=== PATIENT | male | born 1950 | race Caucasian/White ===

== ENCOUNTER 2023-10-14 13:43 | Emergency (ER) | payer MEDICARE, OTHER, SELFPAY ==
[2023-10-14 13:48] VITALS: BP 142/93
--- NOTE | 2023-10-14 14:24 | ED.GENMED ---
History of Present Illness
General
Chief Complaint: Musculo-Skeletal Complaint
Source: patient
Exam Limitations: none
Time Seen by Provider: 10/14/23 13:56
Nursing documentation reviewed up to this point in time: agreed with
Travel History
Have you had any contact with someone who has COVID-19?: No
Do you have any symptoms of coronavirus? Fever > 100 degrees, chills, cough, shortness of breath, sore throat, loss of taste or smell, muscle aches, or headache?: No
History of Present Illness
History of Present Illness:
pt is a 73 y/o M right hand dominance
has h/o arthritis
has seen ortho previously for hand pain and had cortisone shot by dr. garsia prevbrad
pt says that 5 days ago he woke up with left wrist pain and swelling
he has pain with movement, mario flexion/extension
he has tried motrin, aleve, lidocaine patch, rest, splinting and it is still painful
he his having a hard time sleeping
no redenss, warmth, fever, truama
no h/o gout
drinks alcohol socially
Past History
Past History
ED Past Medical History: Other (Chronic Tinnitus for 9 years (2014)); Negative Asthma, HTN, Hypercholesterolemia or NIDDM
ED Past Surgical History: None
Social History
Tobacco: Smoker
Alcohol: Daily (Stevens a Pint)
Drug: None
Personal:
Living: with family
Employment: Employed
Review of Systems
Review of Systems
Allergies reviewed?: Yes
All Other Systems: Not applicable
Phy Exam
Physical Exam
Physical Exam:
GENERAL: Alert , in no apparent distress, comfortable at rest
HEAD: NCAT
CV: 2+ radial pulse
NEUROLOGICAL: Alert and oriented, no focal neuro deficits, , 5/5 strength, sensation intact
SKIN: Warm and dry,
no redness/warmth
MUSCULOSKELETAL: pt has left wrist swelling c/w arthritis
not hot but mildly warm
no redness
painful but able to flex and extend the wrist;
hand nontender
cap refill intact
normal sensaiton
PSYCH: Normal and appropriate interaction.
Course
Orders/Labs/Results
Orders:
Orders
10/14/23 13:54
Wrist, Left 3 Views CR [CR Wrist - Left Min 3 Views] Urgent
Comment:
Reason For Exam: pain
10/14/23 14:40
Prednisone [Deltasone] 50 mg PO NOW STA
Vital Signs
Initial and Last Documented VS:
Initial Vital Signs
Temp Pulse Resp BP Pulse Ox
97.8 F 115 20 142/93 96
10/14/23 13:48 10/14/23 13:48 10/14/23 13:48 10/14/23 13:48 10/14/23 13:48
Last Documented Vital Signs
Temp Pulse Resp BP Pulse Ox
97.8 F 87 12 147/88 99
10/14/23 13:48 10/14/23 15:05 10/14/23 15:05 10/14/23 15:05 10/14/23 15:05
MDM/Problems Addressed
Differential Diagnosis Includes:
arthritis, gout
MDM/Problems Addressed:
73 y/o M
h/o weekly alcohol
has OA
had atraumatic left wrists pain/swelling x 5 days
trouble sleeping
tried nsaids without relief
ice, lidocaine patch
immobilization without relief
xrays shows some OA indepdentnly reviewed by me
reviewed previous labs, cr normal
no h/o PUD, GI bleeding, or ckd, diabetes
will do low dose steroids
1 dose pain med for night time x 5 pills
pt has tolerated oxy in the pat
given hydrocodone.
has f/u with orhto already
*Critical Care Note
Total Time (30-74mins, 75-104mins- exclusive of procedures): Not Applicable
ED Attending Note
-
Portions of this chart may have been created with voice recognition software.� Occasional wrong word or��sound alike� substitutions may have occurred due to the inherent limitations of voice recognition software.
Discharge Plan
Departure
Patient Disposition: Home (Routine Discharge)
Date of Disposition: 10/14/23
Time of Disposition: 15:09
Patient with high blood pressure during this ER visit?: No
Condition: Fair
Discharge Problem:
Arthritis
Instructions: Osteoarthritis (DC)
Prescriptions:
New
hydrocodone-acetaminophen 5-325 mg tablet
1 tab PO HS PRN (Reason: Pain) Qty: 5 0RF
prednisone 20 mg tablet
20 mg PO DAILY Qty: 4 0RF
No Action
vitamins-lipotropics 1 TAB tablet
1 tab PO DAILY
escitalopram oxalate 10 MG tablet
10 mg PO HS
milk thistle 300 MG capsule
300 mg PO DAILY
glucosam-chond gc-euxaat-lj ac 1 EACH capsule
1 ea PO DAILY
GINKGO BILOBA
1 tab PO DAILY
lorazepam 1 MG tablet
1 mg PO Q4HPRN PRN (Reason: Ringing in the ears, Anxiety) Qty: 10 0RF
Referrals:
Jameel Garsia MD [Active] - Follow up in 5-7 days
Activity Restrictions/Additional Instructions:
YOUR WRIST PAIN IS LIKELY FROM ARTHRITIS
TRY PREDNSIONE 20 MG ONCE A DAY FOR 4 DAYS STARTING TOMORROW
TYLENOL 3 TIMES A DAY
IF PAIN IS SEVERE YOU CAN TRY VICODIN 1 TAB AT NIGHT TO HELP YOU SLEEP. DO NOT MIX WITH ALCOHOL. DO NOT TAKE WITH TYLENOL (TAKE IN PLACE OF TYLENOL)
SEE DR. GARSIA NEXT WEEK
WEAR A SPLIN TO HELP IMMOBILIZE IT.
RETURN FOR: REDNESS, WARMTH SEVRE PAIN, SEVERE SWELLING, FEVER OR ANY CONCERNS.
Interventions
Interventions:
*Risk Screen - Suicide Last Done: 10/14/23 13:51
*General Assessment Last Done: 10/14/23 13:51
*Neglect/Abuse Screening Last Done: 10/14/23 13:51
ED- Fall Risk Assessment Last Done: 10/14/23 14:06
*ED COVID-19 Vaccine History Last Done: 10/14/23 13:51
*Nursing Disposition Last Done: 10/14/23 15:10
ED-Musculoskeletal Assessment Last Done: 10/14/23 14:06
Discharge Date and Time
Discharge Date/Time: 10/14/23 15:15
[2023-10-14] MEDS: DELTASONE 50 MG PO (14:49)
[2023-10-14 15:05] VITALS: BP 147/88
== END 2023-10-14 15:15 | disposition home or self-care (01) ==
LOC: EMR 13:43
PROVIDERS: EMERGENCY PHYSICIAN Emergency Medicine; FAMILY PHYSICIAN Physician Assistant Medical
DX: M19.032 Primary osteoarthritis, left wrist (principal); H93.19 Tinnitus, unspecified ear; F17.200 Nicotine dependence, unspecified, uncomplicated; I10 Essential (primary) hypertension; E55.9 Vitamin D deficiency, unspecified; E53.9 Vitamin B deficiency, unspecified
CPT/HCPCS: 99283; 73110

== ENCOUNTER → 2023-11-22 12:47 | Outpatient (REF) | payer MEDICARE, OTHER, SELFPAY | LOC: PAVMRI 12:47 | PROVIDERS: ATTENDING PHYSICIAN Pain Medicine Interventional Pain Medicine; FAMILY PHYSICIAN Family Medicine | DX: M54.12 Radiculopathy, cervical region (principal) | CPT/HCPCS: 72141 ==

== ENCOUNTER → 2023-12-28 14:05 | Outpatient (REF) | payer MEDICARE, OTHER, SELFPAY ==
[2023-12-28 16:09] LABS: Urine Bilirubin 1+ (Negative); Urine Character Clear (Clear); Urine Color Yellow; Urine Glucose Negative (Negative); Urine Ketone 1+ (Negative); Urine Urobilinogen Negative (Neg - 1+)
[2023-12-28 16:24] LABS: Urine Red Blood Cell None Seen /HPF (0-2); Urine Squamous Cell 0-2 /LPF (Few)
[2023-12-28 16:36] LABS: % Basophils 0.9 % (0-2); % Eosinophils 1.7 % (0-6); % Immature Granulocytes 0.5 % (0-0.5); % Lymphocytes 16.4 % (20.5-51.1); % Monocytes 9.2 % (1.7-9.3); % Neutrophils 71.3 % (42.2-75.2); Absolute Basophils 0.1 10^3/uL (0-0.2); Absolute Eosinophils 0.1 10^3/uL (0-0.7); Absolute Lymphocytes 1.1 10^3/uL (1.2-3.4); Absolute Monocytes 0.6 10^3/uL (0.1-0.6); Absolute Neutrophils 4.6 10^3/uL (1.4-6.5); Hematocrit 40.1 % (39.0-52.0); Hemoglobin 14.2 g/dL (13.0-18.0); Mean Corp Hgb Conc. 35.4 g/dL (33.0-37.0); Mean Corpuscular Hgb 35.4 pg (27.0-31.0); Mean Platelet Volume 11.5 fL (7.4-10.4); Nucleated Red Blood Cells % 0 % (-); Platelet Count 202 10^3/uL (130-400); Red Blood Cell Count 4.01 10^6/uL (4.70-6.10); Red Cell Dist. Width 13.3 % (11.5-14.5); White Blood Cell Count 6.4 10^3/uL (4.8-10.8)
[2023-12-28 16:39] LABS: Erythrocyte Sed Rate 28 mm/hour (0-20)
[2023-12-28 16:54] LABS: Protein/creatinine Ratio 0.3; Urine Protein 61 mg/dl
[2023-12-28 17:03] LABS: ALT (SGPT) 18 U/L (0-50); AST (SGOT) 25 U/L (17-59); Alkaline Phosphatase 61 U/L (38-126); Blood Urea Nitrogen 14 mg/dl (9-20); Calcium 9.3 mg/dl (8.4-10.2); Carbon Dioxide 24 mmol/L (22-30); Chloride 98 mmol/L (98-107); Glucose 124 mg/dl (70-99); Sodium 132 mmol/L (135-145); Total Bilirubin 0.6 mg/dl (0.2-1.3); Total Protein 6.7 g/dl (6.3-8.2); Urine Albumin 1+ (Neg - Trace); Urine Leukocyte Trace (Negative); Urine Nitrite Negative (Negative); eGFR > 60.00
[2023-12-28 18:32] LABS: Urine Occult Blood Negative (Negative)
[2023-12-29 23:43] LABS: Complement C3 107 mg/dl (88-165)
[2023-12-31 01:05] LABS: CCP Antibody IgG/IgA 7 Units (0-19)
[2023-12-31 03:16] LABS: Beta-2-Glycoprotein I Ab. IgG <10 SGU (<=20); Beta-2-Glycoprotein I Ab. IgM <10 SMU (<=20)
[2023-12-31 07:35] LABS: Cardiolipin IgA Antibody 18 APL (<=11); Cardiolipin IgM Antibody <10 MPL (<=12); Cardiolipin Igg Antibody <10 GPL (<=14)
[2023-12-31 07:49] LABS: ANA, IgG Reflex to HEp-2 Detected (None Detected)
[2023-12-31 09:31] LABS: Smith/RNP (ENA), IgG 3 Units (0-19)
[2023-12-31 17:41] LABS: Smith (ENA) Antibody, IgG 1 AU/mL (0-40)
[2023-12-31 23:16] LABS: Anti-Xa Qualitative Interp Not Performed (Not Present); Anticoagulant Med Neutralizati Not Performed (Not Performed); Hexagonal Phospholipid Confirm Not Performed s (<=7.9); Neutralized PTT-LA Ratio Not Performed (<=1.20); Neutralized dRVTT Screen Ratio Not Performed (<=1.20); PTT-LA Ratio 0.83 (<=1.20); Prothrombin Time 12.6 s (12.0-15.5); Thrombin Time Not Performed s (<=19.5); dRVTT 1.1 Mix Ratio Not Performed (<=1.20); dRVTT Confirmation Ratio Not Performed (<=1.20); dRVTT Screen Ratio 0.93 (<=1.20)
[2024-01-01 02:13] LABS: 24 Hour Urine Total Volume Random mL; Urine Collection Length Random hr; Urine Free Kappa Light Chains 111.45 mg/L (0.00-32.90); Urine Free Lambda Light Chains 24.77 mg/L (0.00-3.79)
[2024-01-02 18:40] LABS: Alpha 1 Globulin 0.38 g/dL (0.19-0.46); Alpha 2 Globulin 0.84 g/dL (0.48-1.05); SPEP IFE Reflex IFE Done; Total Protein-Electrophoresis 6.6 g/dL (6.3-8.2)
[2024-01-03 08:13] LABS: ANA, HEp-2, IgG Detected (<1:80)
[2024-01-03 08:17] LABS: IgA 335 mg/dL (68-408); IgG 919 mg/dL (768-1632); IgM 110 mg/dL (35-263)
[2024-01-03 08:35] LABS: ANA Pattern Speckled
[2024-01-03 12:58] LABS: Rheumatoid Agglutinin Less Than 10 IU (<10 IU)
== END ==
LOC: RAD 14:05
PROVIDERS: ATTENDING PHYSICIAN Internal Medicine Rheumatology; FAMILY PHYSICIAN Physician Assistant Medical
DX: M79.642 Pain in left hand (principal); M79.641 Pain in right hand
CPT/HCPCS: 36415; 73130; 80053; 81003; 81015; 82570; 82784; 83521; 84155; 84156; 84165; 85025; 85610; 85613; 85652; 85730; 86038; 86039; 86140; 86146; 86147; 86160; 86200; 86235; 86334; 86335; 86430

== ENCOUNTER → 2024-10-03 14:31 | Outpatient (REF) | payer MEDICARE, OTHER, SELFPAY | LOC: RAD 14:31 | PROVIDERS: ATTENDING PHYSICIAN Physician Assistant | DX: M25.572 Pain in left ankle and joints of left foot (principal) | CPT/HCPCS: 73610; 73630 ==

== ENCOUNTER → 2024-11-23 09:13 | Outpatient (REF) | payer MEDICARE, OTHER, SELFPAY | LOC: HWRAD 09:13 | PROVIDERS: ATTENDING PHYSICIAN Internal Medicine Critical Care Medicine; FAMILY PHYSICIAN Physician Assistant Medical | DX: F17.210 Nicotine dependence, cigarettes, uncomplicated (principal) | CPT/HCPCS: 71271 ==

== ENCOUNTER → 2025-03-01 12:53 | Outpatient (REF) | payer MEDICARE, OTHER, SELFPAY | LOC: HWRCS 12:53 | PROVIDERS: ATTENDING PHYSICIAN Internal Medicine Cardiovascular Disease; FAMILY PHYSICIAN Physician Assistant Medical | DX: I25.10 Atherosclerotic heart disease of native coronary artery without angina pectoris (principal); R06.09 Other forms of dyspnea | CPT/HCPCS: 93306 ==

== ENCOUNTER → 2025-03-09 07:46 | Outpatient (REF) | payer MEDICARE, OTHER, SELFPAY | LOC: RCS 07:46 | PROVIDERS: ATTENDING PHYSICIAN Internal Medicine Cardiovascular Disease; FAMILY PHYSICIAN Physician Assistant Medical | DX: I25.10 Atherosclerotic heart disease of native coronary artery without angina pectoris (principal); R06.09 Other forms of dyspnea | CPT/HCPCS: 78452; 93017; A9500 ==

== ENCOUNTER → 2025-03-22 07:12 | Outpatient (REF) | payer MEDICARE, OTHER, SELFPAY | LOC: PAVMRI 07:12 | PROVIDERS: ATTENDING PHYSICIAN Pain Medicine Interventional Pain Medicine; FAMILY PHYSICIAN Physician Assistant Medical | DX: M54.16 Radiculopathy, lumbar region (principal) | CPT/HCPCS: 72148 ==

== ENCOUNTER → 2025-06-15 15:07 | Outpatient (REF) | payer MEDICARE, OTHER, SELFPAY | LOC: PAVMRI 15:07 | PROVIDERS: ATTENDING PHYSICIAN Physician Assistant; FAMILY PHYSICIAN Physician Assistant Medical | DX: M54.14 Radiculopathy, thoracic region (principal) | CPT/HCPCS: 72146 ==